=== PATIENT | male | born 1995 | race Caucasian/White ===

== ENCOUNTER 2022-04-12 20:21 | Emergency (ER) | payer OTHER ==
[2022-04-12 21:14] LABS: BASOPHILS % (AUTO) 1.4 % (0.0-5.0); EOSINOPHILS % (AUTO) 3.8 % (0.0-8.0); HEMATOCRIT 42.6 % (42-54); LYMPHOCYTES % (AUTO) 24.4 % (21.0-51.0); MEAN CORPUSCULAR HEMOGLOBIN 30.4 pg (27.0-33.0); MEAN CORPUSCULAR VOLUME 86.9 fL (79-99); MONOCYTES % (AUTO) 10.2 % (3.0-13.0); NEUTROPHILS % (AUTO) 59.9 % (40.0-77.0); PLATELET COUNT (AUTO) 358 K/uL (130-400); WHITE BLOOD COUNT (AUTO) 6.3 K/uL (4.8-10.8)
[2022-04-12 21:23] LABS: CARBON DIOXIDE 32 mmol/L (21-32); CHLORIDE 103 mmol/L (101-111); CREATININE 0.8 mg/dL (0.5-1.5); GLOMERULAR FILTR. RATE CALC 124 mL/min (>60); GLUCOSE,RANDOM 111 mg/dL (70-105); POTASSIUM 4.1 mmol/L (3.5-5.1); SODIUM SERUM 141 mmol/L (136-145); UREA NITROGEN, BLOOD 15 mg/dL (7-18)
[2022-04-12 21:27] LABS: ALANINE AMINOTRANSFERASE 50 U/L (12-78); ALCOHOL, BLOOD < 3 mg/dL (0-10); ASPARTATE AMINOTRANSFERASE 29 U/L (10-37)
[2022-04-12 21:28] LABS: ACETAMINOPHEN < 1 mcg/mL (10-29); SALICYLATE < 2.8 mg/dL (2.8-20.0)
[2022-04-12 22:18] LABS: APPEARANCE,URINE CLEAR (CLEAR); BILIRUBIN,URINE NEGATIVE (NEGATIVE); COLOR,URINE LIGHT-YELLOW (YELLOW); GLUCOSE, URINE (UA) NEGATIVE (NEGATIVE); KETONES,URINE NEGATIVE (NEGATIVE); LEUKOCYTE ESTERASE ,URINE NEGATIVE Leu/uL (NEGATIVE); NITRATE,URINE NEGATIVE (NEGATIVE); OCCULT BLOOD,URINE NEGATIVE (NEGATIVE); PH,URINE 5.5 (5.0-8.0); PROTEIN,URINE NEGATIVE (NEGATIVE); UROBILINOGEN,URINE 0.2 mg/dL (0.2-1.0)
[2022-04-12 23:00] LABS: AMPHET/METH SCREEN,URINE NEGATIVE (NEGATIVE); BARBITURATE SCREEN, URINE NEGATIVE (NEGATIVE); BENZODIAZEPINES SCREEN,URINE NEGATIVE (NEGATIVE); CANNABINOID SCREEN,URINE NEGATIVE (NEGATIVE); COCAINE SCREEN,URINE NEGATIVE (NEGATIVE); OPIATE SCREEN,URINE NEGATIVE (NEGATIVE); PHENCYCLIDINE SCREEN,URINE NEGATIVE (NEGATIVE)
[2022-04-13 12:11] VITALS: BP 123/57
== END 2022-04-14 00:20 | disposition home or self-care (01) ==
LOC: EDH 20:21
DX: F43.21 Adjustment disorder with depressed mood (principal); F32.9 Major depressive disorder, single episode, unspecified; Z59.00 Homelessness unspecified
CPT/HCPCS: 99285; 80053; 80305; 85025; 36415; 81003; G0481

== ENCOUNTER 2023-07-22 08:32 | Emergency (ER) | payer OTHER ==
[~2023-07-22] VITALS: Ht 172.7 cm; Wt 90.7 kg
[2023-07-22 08:54] LABS: BASOPHILS # (AUTO) 0.08 K/uL (0.00-0.20); BASOPHILS % (AUTO) 1.2 % (0.0-5.0); EOSINOPHILS % (AUTO) 1.5 % (0.0-8.0); HEMATOCRIT 46.1 % (42-54); IMMATURE GRANULOCYTE ABSOLUTE 0.02 K/uL (0-1); LYMPHOCYTES # (AUTO) 1.2 K/uL (1.0-4.8); LYMPHOCYTES % (AUTO) 17.9 % (21.0-51.0); MEAN CORPUSCULAR HEMOGLOBIN 30.4 pg (27.0-33.0); MEAN CORPUSCULAR HGB CONC 34.9 g/dL (32.0-36.0); MEAN CORPUSCULAR VOLUME 87.1 fL (79-99); MONOCYTES # (AUTO) 0.8 K/uL (0.1-1.0); MONOCYTES % (AUTO) 11.1 % (3.0-13.0); NEUTROPHILS # (AUTO) 4.6 K/uL (1.8-7.7); PLATELET COUNT (AUTO) 292 K/uL (130-400); RED BLOOD CELL COUNT(AUTO) 5.29 MIL/uL (4.50-6.20); RED CELL DISTRIBUTION WIDTH 13.3 % (11.0-15.5); WHITE BLOOD COUNT (AUTO) 6.8 K/uL (4.8-10.8)
[2023-07-22] MEDS: PANTOPRAZOLE 40 MG/VIAL IVP ONE (09:02)
[2023-07-22] MEDS: 0.9%NACL 1000ML 1,000 ML IV ONE (09:02)
[2023-07-22] MEDS: ONDANSETRON 4MG INJ IVP ONE (09:02)
[2023-07-22 09:07] LABS: CARBON DIOXIDE 27 mmol/L (21-32); CHLORIDE 104 mmol/L (101-111); CREATININE 0.7 mg/dL (0.5-1.3); GLOMERULAR FILTR. RATE CALC 130 mL/min (>90); GLUCOSE,RANDOM 92 mg/dL (70-105); POTASSIUM 3.6 mmol/L (3.5-5.1); SODIUM SERUM 141 mmol/L (136-145); UREA NITROGEN, BLOOD 14 mg/dL (7-18)
[2023-07-22 09:12] LABS: ALANINE AMINOTRANSFERASE 61 U/L (12-78); ALBUMIN 4.6 g/dL (3.5-5.0); ALCOHOL, BLOOD < 3 mg/dL (0-10); ASPARTATE AMINOTRANSFERASE 37 U/L (10-37); BILIRUBIN,DIRECT 0.2 mg/dL (0.0-0.3); BILIRUBIN,TOTAL 0.7 mg/dL (0.2-1.0); TOTAL PROTEIN, SERUM 8.1 g/dL (6.0-8.3)
[2023-07-22] MEDS ORDERED: PANT40TA55 PO (10:11)
[2023-07-22] MEDS ORDERED: METR375C2 PO (10:11)
[2023-07-22 10:38] VITALS: BP 120/69; PULSE 76; RESP 18; O2SAT 99
== END 2023-07-22 11:24 | disposition home or self-care (01) ==
LOC: EDH 08:32
DX: K29.01 Acute gastritis with bleeding (principal); R11.10 Vomiting, unspecified
CPT/HCPCS: 99285; 74176; 96374; 96375; 80076; 84484; 80048; 83690; 85025; 36415; 93005; J7030; J2405; C9113

== ENCOUNTER 2024-06-24 03:15 | Inpatient (IN) | payer SELFPAY ==
[~2024-06-24] VITALS: Ht 172.7 cm; Wt 71.2 kg
[~2024-06-24 03:15] MED LIST: METR375C2 PO; PANT40TA55 PO
[2024-06-24] MEDS: ketOROlac 30MG VIAL (30MG/ML) IVP ONE (04:50)
[2024-06-24] MEDS: ceFAZolin SODIUM 1 GM VIAL IVP ONE (04:50)
[2024-06-24 05:25] LABS: HEMATOCRIT 36.9 % (42-54); MEAN CORPUSCULAR HEMOGLOBIN 31.3 pg (27.0-33.0); MEAN CORPUSCULAR VOLUME 89.6 fL (79-99); RED BLOOD CELL COUNT(AUTO) 4.12 MIL/uL (4.50-6.20); RED CELL DISTRIBUTION WIDTH 12.4 % (11.0-15.5); WHITE BLOOD COUNT (AUTO) 9.9 K/uL (4.8-10.8)
[2024-06-24 05:31] LABS: AMPHET/METH SCREEN,URINE NEGATIVE (NEGATIVE); BARBITURATE SCREEN, URINE NEGATIVE (NEGATIVE); BENZODIAZEPINES SCREEN,URINE NEGATIVE (NEGATIVE); CANNABINOID SCREEN,URINE POSITIVE (NEGATIVE); COCAINE SCREEN,URINE NEGATIVE (NEGATIVE); OPIATE SCREEN,URINE NEGATIVE (NEGATIVE); PHENCYCLIDINE SCREEN,URINE NEGATIVE (NEGATIVE)
--- NOTE | 2024-06-24 05:53 | ERN ---
General Chief Complaint: Head, Face, Neck Trauma Stated Complaint: HEAD INJURY Time Seen by MD: 04:24 History of Present Illness Initial Comments Patient is a 28-year-old male who fell in the shower yesterday he said he was down for an unknown period of time. When he woke up he noticed that there was a large piece of skin missing from his left forehead but he did not come to the hospital. He comes to the hospital today after 1st going to [facility]. He is concerned that he has an elevated CK level and he appears somnolent to me. He states he does not do drugs or drink alcohol. Timing/Duration: 24 hours Allergies: Coded Allergies: No Known Allergies (Unverified Allergy, Unknown, 04/12/22) Home Meds Active Scripts Metronidazole (Flagyl) 375 Mg Capsule, 375 MG PO DAILY for 7 Days, #7 CAP Prov:PHILOMENA HORTON MD 07/22/23 Pantoprazole Sodium (Protonix) 40 Mg Ectab, 40 MG PO DAILY for 30 Days, #30 TAB.EC Prov:PHILOMENA HORTON MD 07/22/23 Past Medical History Past Medical History: No Pertinent History, Depression Medical History Other: PSYCH HISTORY Past Surgical History: None Social History Social History: Drugs Dication THC Constitutional: (-) chills, (-) diaphoresis, (-) fever, (-) malaise, (-) weakness, (-) other documentation EENTM: (-) eye pain, (-) blurred vision, (-) tearing, (-) double vision, (-) ear pain, (-) ear discharge, (-) nose pain, (-) nose congestion, (-) throat pain, (-) Throat swelling, (-) mouth pain, (-) tooth pain, (-) mouth swelling, (-) other documentation Respiratory: (-) cough, (-) orthopnea, (-) short of breath, (-) stridor, (-) wheezing, (-) other documentation Cardiovascular: (-) chest pain, (-) edema, (-) palpitations, (-) syncope, (-) dyspnea on exertion, (-) other documentation Gastrointestinal/Abdominal: (-) nausea, (-) vomiting, (-) diarrhea, (-) abdominal pain, (-) abdominal distention, (-) constipation, (-) rectal bleeding, (-) dark stool/melena, (-) other documentation Musculoskeletal: (-) Neck pain, (-) back pain, (-) Flank Pain, (-) joint pain, (-) joint swelling, (-) muscle pain, (-) muscle stiffness, (-) gout, (-) other documentation Skin: (-) laceration, (-) contusion, (-) abrasion, (-) abscess, (-) rash, (-) change in color, (-) change in hair, (-) change in nails, (-) diaphoresis, (-) dryness, (-) other documentation Neuro: (-) altered mental status, (-) headache, (-) syncope, (-) paralysis, (-) numbness, (-) seizure, (-) pre-existing deficit, (-) tremors, (-) weakness, (-) dizziness, (-) slurred speech, (-) vertigo, (-) other documentation Physical Exam General Appearance: (+) mild distress Orientation: (+) alert Head/Face Trauma: Yes Face Comment There was a large skin defect encompassing most of the left forehead. Fat is exposed the wound is clearly a day old at least. Eye: bilateral eye normal inspection, bilateral eye PERRL, bilateral eye EOMI Eyes Comment Patient's eyes move in all directions he has no signs of entrapment he does not have diplopia he does not have a loss of vision or visual acuity. Ear, Nose, Throat: (+) hearing grossly normal, (+) normal ENT inspection Neck: (+) normal inspection, (+) no JVD Respiratory: (+) chest non-tender, (+) lungs clear, (+) well ventilated Heart: (+) regular, (+) no gallop Results Laboratory and Microbiology Lab and Micro Result Laboratory Tests Test 06/24/24 05:18 White Blood Count 9.9 K/uL (4.8-10.8) Red Blood Count 4.12 MIL/uL (4.50-6.20) L Hemoglobin 12.9 g/dL (14.0-18.0) L Hematocrit 36.9 % (42-54) L Mean Corpuscular Volume 89.6 fL (79-99) Mean Corpuscular Hemoglobin 31.3 pg (27.0-33.0) Mean Corpuscular Hemoglobin Concent 35.0 g/dL (32.0-36.0) Red Cell Distribution Width 12.4 % (11.0-15.5) Platelet Count 265 K/uL (130-400) Mean Platelet Volume 9.4 fL (7.5-10.5) Nucleated Red Blood Cells 0.0 % (0.0-0.19) Sodium Level 141 mmol/L (136-145) Potassium Level 2.9 mmol/L (3.5-5.1) *L Chloride Level 103 mmol/L (101-111) Carbon Dioxide Level 29 mmol/L (21-32) Blood Urea Nitrogen 9 mg/dL (7-18) Creatinine 0.4 mg/dL (0.5-1.3) L Glomerular Filtration Rate Calc 152 mL/min (>90) Random Glucose 92 mg/dL (70-105) Total Calcium 8.2 mg/dL (8.5-10.1) L Total Creatine Kinase 4134 U/L (21-232) *H Urine Opiates Screen NEGATIVE (NEGATIVE) Urine Barbiturates Screen NEGATIVE (NEGATIVE) Urine Phencyclidine Screen NEGATIVE (NEGATIVE) Urine Amphetamines Screen NEGATIVE (NEGATIVE) Urine Benzodiazepines Screen NEGATIVE (NEGATIVE) Urine Cocaine Screen NEGATIVE (NEGATIVE) Urine Marijuana (THC) Screen POSITIVE (NEGATIVE) H MDM Patient has a large skin defect on his left forehead I will do a stat CT head to make sure he does not have an intracerebral injury. I think the patient needs to be admitted to the [facility] for better wound care and also definitive planning for closure of his large skin defect. ED Course Orders Procedure Category Date Status Time Cefazolin Sodium 1 Gm PHA 06/24/24 Complete Vial (Ancef 1 Gm V 05:00 Ketorolac PHA 06/24/24 Complete Tromethamine 30mg/Ml 05:00 Ct Head/Brain W/O CT 06/24/24 Taken Contrast 04:42 Cbc Without LAB 06/24/24 Complete Differential 05:18 Basic Metabolic Panel LAB 06/24/24 Complete 05:18 Creatine Kinase, Total LAB 06/24/24 Complete 05:18 Drug Screen Urine LAB 06/24/24 Complete 05:18 Current Medications Medications (Trade) Dose Ordered Sig/Nell Route PRN Reason Start Time Stop Time Status Last Admin Dose Admin Cefazolin Sodium (ANCEF 1 gm vial) 1 gm ONCE ONCE IVP 06/24/24 05:00 06/24/24 05:01 DC 06/24/24 04:50 Ketorolac Tromethamine (toRADol) 30 mg ONCE ONCE IVP 06/24/24 05:00 06/24/24 05:01 DC 06/24/24 04:50 Vital Signs Date Time Temp Pulse Resp B/P (MAP) Pulse Ox O2 Delivery O2 Flow Rate FiO2 06/24/24 05:49 98.2 78 18 135/90 98 Room Air* 0 21 06/24/24 03:17 97.5 77 18 153/93 98 Room Air 0 DX & DISP Disposition: Inpatient Departure Impression: Primary Impression: Open scalp wound Condition: Stable Referrals: SELF,REFERRAL (PCP) JOSEA COLON MD June 24, 2024 05:53
[2024-06-24 05:54] LABS: CREATININE 0.4 mg/dL (0.5-1.3)
[2024-06-24 06:02] LABS: POTASSIUM 2.9 mmol/L (3.5-5.1)
--- NOTE | 2024-06-24 06:15 | NUR ---
WOUND CARE DONE ORDERED
[2024-06-24] MEDS ORDERED: acetaMINOPHEN 325 MG TAB PO PRN ×3 (07:30)
[2024-06-24] MEDS ORDERED: PoTASSium chl 10% ELIXIR 20MEQ 20 MEQ/15 ML UDCUP PO PRN ×2 (07:30)
[2024-06-24] MEDS ORDERED: PoTASSium chloRIDE 20MEQ ER 20 MEQ ERTAB PO PRN (07:30)
[2024-06-24] MEDS ORDERED: LACTATED RINGERS 1000ML 1,000 ML IV SCH (07:30)
[2024-06-24] MEDS ORDERED: ceFAZolin SODIUM 1 GM VIAL IVPB SCH (07:30)
[2024-06-24] MEDS ORDERED: ondanSETRON 4MG INJ IVP PRN ×2 (07:30)
[2024-06-24] MEDS ORDERED: PoTASSium chloRIDE 20MEQ/100ML 100 ML IV PRN ×4 (07:30)
[2024-06-24] MEDS: LACTATED RINGERS 1000ML 1,000 ML IV SCH (08:07)
--- NOTE | 2024-06-24 08:07 | HMCIMG ---
Exam Type: CT HEAD/BRAIN W/O CONTRAST Clinical Information: LEFT FRONTAL HEAD INJURY, + LOC Comparison: None CT Dose Index (CTDI): 57.33 mGy Dose Length Product (DLP): 956.79 total mGy-cm Findings: The examination is unremarkable. Johnson-white matter junction is preserved. No intra or extra axial lesions or fluid collections are seen. Specifically, johnson and white matter are normal in signal characteristics with normal caliber of ventricles and periventricular cisterns with no evidence of intra or or extra-axial hemorrhage, lacunar infarct, or major territorial infarct, mass, or other abnormality. There are no infarcts. There are no hemorrhages. Periventricular white matter locations are preserved. The orbital contents and structures of the posterior fossa are intact. Impression: Normal CT of the head. This study was performed using dose reduction techniques to include automated exposure control and/or adjustment of the mA and/or kV according to patient size.
[2024-06-24] MEDS: PoTASSium chloRIDE 20MEQ ER 20 MEQ ERTAB PO PRN (08:22)
[2024-06-24] MEDS: acetaMINOPHEN 325 MG TAB PO PRN (08:36)
--- NOTE | 2024-06-24 10:20 | NUR ---
NO HOME MEDS AT BEDSIDE
[2024-06-24] MEDS: ceFAZolin SODIUM 1 GM VIAL IVPB SCH (13:09)
[2024-06-24 13:55] VITALS: O2SAT 97
--- NOTE | 2024-06-24 14:02 | NUR ---
CALLED AND GAVE REPORT TO GEORGIA ARZOLA , ROOM 321
--- NOTE | 2024-06-24 14:29 | NUR ---
[facility] Consult: Patient assessed by wound healing team. See wound assessment. Assessment and recommendations provided to primary nurse. Education provided. Wound care done. Addendum: 06/25/24 at 1557 by JORGE CABALLERO RN RN/ Amended: Links added.
[2024-06-24 14:44] VITALS: BP 124/78; PULSE 80; RESP 18; TEMP 98.6
[2024-06-24 16:00] VITALS: BP 144/82; PULSE 93; RESP 18; TEMP 98.5
--- NOTE | 2024-06-24 16:40 | HP ---
Admitting Dr. Ceferino Serna Reason for consultation: Status post fall with laceration to left forehead History of present illness: This is a 28-year-old male admitted to our services after presenting to the hospital four days after having a sustained fall on shower where patient reports he was out and had a loss of consciousness for an unknown period of time. When patient woke up he reports a large piece of skin was missing just over his left eyebrow. Patient's attempted to manage wound on his own for the 1st two days and then presented to [facility] in [place] but left AMA. Patient then presented to [facility] for assistance in management. On admission patient with a elevated CK. Then 4100. Patient's potassium under three. On exam no active bleeding from site. Currently bandaged. Patient currently NPO. No other acute findings reported. CT of head unremarkable. Medical history: None reported Surgical history: None reported Review of systems: General: No Fever, No Chills, No Night Sweats, No Fatigue, No Malaise, No Appetite, No Other HEENT: No Head Aches, No Visual Changes, No Eye Pain, No Ear Pain, No Dysphasia, No Sinus Congestion, No Post Nasal Drip, No Sore Throat, No Other Pulmonary: No Dyspnea, No Cough, No Pleuritic Chest Pain, No Other Cardiovascular: No: Chest Pain, Palpitations, Orthopnea, Paroxysmal No Dyspnea, Edema, Lt Headedness, Other Gastrointestinal: No: Nausea, Vomiting, Diarrhea, Constipation, Melena, Hematochezia, Other Genitourinary: No Dysuria, No Frequency, No Incontinence, No Hematuria, No Retention, No Other Musculoskeletal: No: other, neck pain, shoulder pain, arm pain, back pain, hand pain, leg pain, foot pain Skin: No Urticaria, No Rash, No Other Neurological: No: Weakness, Numbness, Incoordination, Change in speech, Confusion, Seizures, Other Physical exam: General: Awake alert and oriented Heart: Regular rate and rhythm} Lungs: Clear to auscultation no distress Abdomen: [Soft, nontender, nondistended Skin over left forehead region missing with noninfected tissue at this time Assessment: This is a 28-year-old male with laceration to left scalp region with missing tissue and elevated CK concerning for rhabdomyolysis Plan: At this point in time nursing instructed to cover potassium Hospitalist to be consulted for elevated CK in assistance with management of rhabdomyolysis Patient to continue with Xeroform over lacerated forehead with daily wound care management being performed by nursing No immediate surgical intervention planned at this time Patient will likely follow up in outpatient setting for continued wound care management Surgical team to follow patient closely and Dr. Hyatt to be updated in patient's status. Thank you EDILSON FAIRCHILD Jr. June 24, 2024 16:39
[2024-06-24 20:00] VITALS: BP 122/77; PULSE 88; RESP 18; TEMP 98.1
--- NOTE | 2024-06-24 22:22 | CONS ---
[facility] CONSULTATION NOTE Date of Service: June 24, 2024 Reason for Consultation: Rhabdomyolysis, medical management Requesting Physician: Surgical team with Dr. Serna HISTORY OF PRESENT ILLNESS: Mr. Jolly is a 28-year-old male with a history of depression, psych history, marijuana abuse, and recurrent herpes outbreak was admitted to under the surgical team services after presenting to the hospital four days after having a sustained fall on shower where patient reports he was out and had a loss of consciousness for an unknown period of time. The patient reported to that when he woke up he reports a large piece of skin was missing just over his left eyebrow. Patient's attempted to manage wound on his own for the 1st two days and then presented to [facility] in [place] but left AMA. Patient then presented to [facility] for assistance in management. On admission patient had a CK of 4134 and a K of 2.9. CT of head unremarkable. The patient was positive for marijuana. The [facility] hospitalist team was consulted on 06/24/2024 for evaluation of elevated CK with concern of rhabdomyolysis. I assessed the patient at bedside in room 321. The patient's breathing was even, unlabored, in no distress. The patient was lying in bed, eating chips, reports feeling tired. The patient denied chest pain, palpitations, shortness of breath, any other pain, problem or concern. I informed the patient of labs, diagnosis, and plan of care. He verbalized understanding and is in agreement with the plan. Plan and assessment as listed below. Addendum: Repeated labs: CK improved to 2,650 from 4,134. Potassium improved from 2.9 to 4.5. REVIEW OF SYSTEMS 12-point ROS reviewed with the patient. All pertinent positives mentioned above. Otherwise negative, noncontributory, non-pertinent. PAST MEDICAL HISTORY: As mentioned above PAST SURGICAL HISTORY: None PAST SOCIAL HISTORY: Patient reported stopped using marijuana, (UA is positive for marijuana) Alcohol use: Occasional Tobacco use: Denied Coded Allergies: No Known Allergies (Unverified Allergy, Unknown, 04/12/22) PHYSICAL EXAM GENERAL APPEARANCE: The patient is awake, alert, and oriented, in no acute cardiopulmonary distress. NEUROLOGICAL: Cranial nerves II-XII grossly intact. Motor is 5/5 in bilateral upper and lower extremities proximal to distal. No sensory deficits. HEENT: Face is symmetric. Pupils are equal and reactive. Extraocular movements are intact. NECK: Supple. No JVD. No thyromegaly. No submental, submandibular, pre- /postauricular, occipital or supraclavicular lymphadenopathy. CHEST: Normal chest expansion. No Telemetry. LUNGS: Absence of any rales, rhonchi or any wheezing. CARDIOVASCULAR: Regular. S1 and S2 normal. No appreciable rubs, murmurs or gallops. ABDOMEN: Soft, nontender, and nondistended. There is no rebound, voluntary guarding, or rigidity. : Penile sores. No Rubi. EXTREMITIES: Non-edematous and not cyanotic. No clubbing. Good capillary refill. SKIN: Left forehead wound is covered with clean dressing. Vital Sign (Last 24 Hours) 06/24/24 20:00 Temp 98.1 Pulse 88 Resp 18 B/P (MAP) 122/77 Pulse Ox 99 O2 Delivery Room Air O2 Flow Rate 0 FiO2 21 LABS: Laboratory: Test 06/24/24 05:18 Range/Units White Blood Count 9.9 4.8-10.8 K/uL Red Blood Count 4.12 L 4.50-6.20 MIL/uL Hemoglobin 12.9 L 14.0-18.0 g/dL Hematocrit 36.9 L 42-54 % Mean Corpuscular Volume 89.6 79-99 fL Mean Corpuscular Hemoglobin 31.3 27.0-33.0 pg Mean Corpuscular Hemoglobin Concent 35.0 32.0-36.0 g/dL Red Cell Distribution Width 12.4 11.0-15.5 % Platelet Count 265 130-400 K/uL Mean Platelet Volume 9.4 7.5-10.5 fL Nucleated Red Blood Cells 0.0 0.0-0.19 % Sodium Level 141 136-145 mmol/L Potassium Level 2.9 *L 3.5-5.1 mmol/L Chloride Level 103 101-111 mmol/L Carbon Dioxide Level 29 21-32 mmol/L Blood Urea Nitrogen 9 7-18 mg/dL Creatinine 0.4 L 0.5-1.3 mg/dL Glomerular Filtration Rate Calc 152 >90 mL/min Random Glucose 92 70-105 mg/dL Total Calcium 8.2 L 8.5-10.1 mg/dL Total Creatine Kinase 4134 *H 21-232 U/L Urine Opiates Screen NEGATIVE NEGATIVE Urine Barbiturates Screen NEGATIVE NEGATIVE Urine Phencyclidine Screen NEGATIVE NEGATIVE Urine Amphetamines Screen NEGATIVE NEGATIVE Urine Benzodiazepines Screen NEGATIVE NEGATIVE Urine Cocaine Screen NEGATIVE NEGATIVE Urine Marijuana (THC) Screen POSITIVE H NEGATIVE DIAGNOSTICS / RADIOLOGY: [ ] ASSESSMENT: Left scapular laceration/open wounds, POA s/p syncope episode after fall injury Rhabdomyolysis, POA Severe hypokalemia, POA Dehydration POA Marijuana abuse Anemia chronic disease Transaminitis Chronic problem list: Depression, psych history, marijuana abuse, recurrent herpes outbreak with frequent use of acyclovir PLAN: -Patient was admitted by the the surgical team to medical-surgical unit. -CONTINUE ANCEF1 G Q.8 HOURS IV. -Increase LR to 250 mL an hour. (LR was running at 125 mL an hours) -Monitor CK q.6 hours. -Glucometer checks AC & HS needed with insulin regular sliding scale coverage as needed. -Blood pressure checks every 4 hours and as needed. -p.r.n. medications for: Pain, fever, nausea, vomiting, hypertension, constipation. -AM labs. -Monitor renal and liver function -Monitor electrolytes and replace PRN -GI and DVT prophylaxis ADVANCED CARE PLANNING 1. Which of the following were discussed? Hospice Care - No Therapeutic options - Yes Advance Directives - Yes Other discussions - 2. Discussed with who? Patient 3. Voluntary nature of this service was explained to the patient? Yes 4. Amount of time spent - __ over 35 minutes 5. Reviewed by Physician? (if this service was performed by COLIN) Yes ATTESTATION BY PHYSICIAN I have seen and examined the patient. I reviewed the documentation, medical decision making, and treatment plan as noted by the mid-level provider above. I agree with the findings and plan of care. GUILHERME TRAN [facility] June 24, 2024 22:22
[2024-06-24 22:49] LABS: HEMATOCRIT 37.1 % (42-54); MEAN CORPUSCULAR VOLUME 91.2 fL (79-99); RED BLOOD CELL COUNT(AUTO) 4.07 MIL/uL (4.50-6.20); RED CELL DISTRIBUTION WIDTH 12.4 % (11.0-15.5); WHITE BLOOD COUNT (AUTO) 8.6 K/uL (4.8-10.8)
[2024-06-24 23:19] LABS: CREATININE 0.7 mg/dL (0.5-1.3); POTASSIUM 4.5 mmol/L (3.5-5.1)
[2024-06-24 23:42] LABS: ALBUMIN 3.5 g/dL (3.5-5.0); BILIRUBIN,TOTAL 0.3 mg/dL (0.2-1.0); MAGNESIUM 1.9 mg/dL (1.80-2.40); TOTAL PROTEIN, SERUM 7.3 g/dL (6.0-8.3)
[2024-06-25 04:00] VITALS: BP 110/76; PULSE 100; RESP 18; TEMP 98.1
[2024-06-25] MEDS: MAGNESIUM 2GM PREMIX 50ML 50 ML IV PRN (05:17)
[2024-06-25] MEDS ORDERED: VALA500T42 PO (06:03)
[2024-06-25 07:05] LABS: HEMATOCRIT 34.5 % (42-54); MEAN CORPUSCULAR HEMOGLOBIN 30.7 pg (27.0-33.0); MEAN CORPUSCULAR HGB CONC 33.6 g/dL (32.0-36.0); MEAN CORPUSCULAR VOLUME 91.3 fL (79-99); RED BLOOD CELL COUNT(AUTO) 3.78 MIL/uL (4.50-6.20); RED CELL DISTRIBUTION WIDTH 12.6 % (11.0-15.5); WHITE BLOOD COUNT (AUTO) 5.3 K/uL (4.8-10.8)
[2024-06-25 07:32] VITALS: BP 120/59; PULSE 76; RESP 18; TEMP 98.1
[2024-06-25 07:39] LABS: ALBUMIN 3.1 g/dL (3.5-5.0); BILIRUBIN,TOTAL 0.4 mg/dL (0.2-1.0); CREATININE 0.7 mg/dL (0.5-1.3); TOTAL PROTEIN, SERUM 5.6 g/dL (6.0-8.3)
[2024-06-25 08:00] VITALS: O2SAT 98
[2024-06-25] MEDS: valaCYCLOvir HCL 500 MG TABLET PO SCH (09:22)
[2024-06-25] MEDS: ALPRAZolam 0.25 MG TABLET PO PRN (10:53)
[2024-06-25 11:29] VITALS: BP 136/79; PULSE 68; RESP 18; TEMP 98.4
--- NOTE | 2024-06-25 12:29 | PN ---
[facility] PROGRESS NOTE Date of Service: June 25, 2024 Time of Service: 12:[address] Peguero SUBJECTIVE: [ 06/24/24 Mr. Jolly is a 28-year-old male with a history of depression, psych history, marijuana abuse, and recurrent herpes outbreak was admitted to under the surgical team services after presenting to the hospital four days after having a sustained fall on shower where patient reports he was out and had a loss of consciousness for an unknown period of time. The patient reported to that when he woke up he reports a large piece of skin was missing just over his left eyebrow. Patient's attempted to manage wound on his own for the 1st two days and then presented to [facility] in [place] but left AMA. Patient then presented to [facility] for assistance in management. On admission patient had a CK of 4134 and a K of 2.9. CT of head unremarkable. The patient was positive for marijuana. [facility] hospitalist team was consulted on 06/24/2024 for evaluation of elevated CK with concern of rhabdomyolysis. I assessed the patient at bedside in room 321. The patient's breathing was even, unlabored, in no distress. The patient was lying in bed, eating chips, reports feeling tired. The patient denied chest pain, palpitations, shortness of breath, any other pain, problem or concern. I informed the patient of labs, diagnosis, and plan of care. He verbalized understanding and is in agreement with the plan. Plan and assessment as listed below. 06/25/24 patient was seen by nurse practitioner physician during rounding in room 321. Patient is toxicology came back positive for THC. Head CT negative. As per surgeon apply Xeroform over lacerated for help with the daily wound care management. patient was cleared by the surgical point to be discharged home. We will give patient one more day four CK of 1645 today if the we will go down less than 800 tomorrow patient will be able to go home. Patient also was complaining of anxiety. Xanax 0.25 q.8 hours was ordered. We will continue to monitor patient in the meantime. A.m. labs] REVIEW OF SYSTEMS 12-point ROS reviewed with the patient. All pertinent positives mentioned above. Otherwise negative, noncontributory, non-pertinent. PHYSICAL EXAM GENERAL APPEARANCE: The patient is awake, alert, and oriented, in no acute cardiopulmonary distress. NEUROLOGICAL: Cranial nerves II-XII grossly intact. Motor is 5/5 in bilateral upper and lower extremities proximal to distal. No sensory deficits. HEENT: Face is symmetric. Pupils are equal and reactive. Extraocular movements are intact. NECK: Supple. No JVD. No thyromegaly. No submental, submandibular, pre- /postauricular, occipital or supraclavicular lymphadenopathy. CHEST: Normal chest expansion. No Telemetry. LUNGS: Absence of any rales, rhonchi or any wheezing. CARDIOVASCULAR: Regular. S1 and S2 normal. No appreciable rubs, murmurs or gallops. ABDOMEN: Soft, nontender, and nondistended. There is no rebound, voluntary guarding, or rigidity. : Penile sores. No Rubi. EXTREMITIES: Non-edematous and not cyanotic. No clubbing. Good capillary refill. SKIN: Left forehead wound is covered with clean dressing. Vital Signs (last 8hr) Date Time Temp Pulse Resp B/P (MAP) Pulse Ox O2 Delivery O2 Flow Rate FiO2 06/25/24 11:29 98.4 68 18 136/79 98 Room Air 06/25/24 07:32 98.1 76 18 120/59 98 Room Air LABS: Laboratory: Test 06/25/24 06:50 06/24/24 22:40 06/24/24 05:18 Range/Units White Blood Count 5.3 # 4.8-10.8 K/uL Red Blood Count 3.78 L 4.50-6.20 MIL/uL Hemoglobin 11.6 L 14.0-18.0 g/dL Hematocrit 34.5 L 42-54 % Mean Corpuscular Volume 91.3 79-99 fL Mean Corpuscular Hemoglobin 30.7 27.0-33.0 pg Mean Corpuscular Hemoglobin Concent 33.6 32.0-36.0 g/dL Red Cell Distribution Width 12.6 11.0-15.5 % Platelet Count 230 130-400 K/uL Mean Platelet Volume 9.3 7.5-10.5 fL Nucleated Red Blood Cells 0.0 0.0-0.19 % Sodium Level 140 136-145 mmol/L Potassium Level 4.0 3.5-5.1 mmol/L Chloride Level 106 101-111 mmol/L Carbon Dioxide Level 30 21-32 mmol/L Blood Urea Nitrogen 7 7-18 mg/dL Creatinine 0.7 0.5-1.3 mg/dL Glomerular Filtration Rate Calc 129 >90 mL/min Random Glucose 119 H 70-105 mg/dL Total Calcium 8.1 L 8.5-10.1 mg/dL Total Bilirubin 0.4 # 0.2-1.0 mg/dL Aspartate Amino Transf (AST/SGOT) 83 H 10-37 U/L Alanine Aminotransferase (ALT/SGPT) 65 12-78 U/L Alkaline Phosphatase 73 50-136 U/L Total Creatine Kinase 1645 #*H 21-232 U/L Total Protein 5.6 #L 6.0-8.3 g/dL Albumin 3.1 L 3.5-5.0 g/dL Magnesium Level 1.90 1.80-2.40 mg/dL Troponin I High Sensitivity 7.7 4-75 ng/L B-Type Natriuretic Peptide 34 0-100 pg/mL Urine Opiates Screen NEGATIVE NEGATIVE Urine Barbiturates Screen NEGATIVE NEGATIVE Urine Phencyclidine Screen NEGATIVE NEGATIVE Urine Amphetamines Screen NEGATIVE NEGATIVE Urine Benzodiazepines Screen NEGATIVE NEGATIVE Urine Cocaine Screen NEGATIVE NEGATIVE Urine Marijuana (THC) Screen POSITIVE H NEGATIVE Current Medications Medications (Trade) Dose Ordered Sig/Nell Route PRN Reason Start Time Stop Time Status Last Admin Dose Admin Acetaminophen (TYLenol 325MG TAB) 650 mg Q4H PRN PO TEMPERATURE GREATER THAN 101.5 06/24/24 07:30 06/24/24 07:14 DC Acetaminophen (TYLenol 325MG TAB) 650 mg Q4H PRN PO TEMPERATURE GREATER THAN 101.5 06/24/24 07:30 07/24/24 07:29 Acetaminophen (TYLenol 325MG TAB) 650 mg Q6H PRN PO MILD PAIN (1-3) 06/24/24 07:30 06/24/24 07:14 DC Acetaminophen (TYLenol 325MG TAB) 650 mg Q6H PRN PO MILD PAIN (1-3) 06/24/24 07:30 07/24/24 07:29 06/25/24 05:54 650 MG Alprazolam (XANax 0.25MG) 0.25 mg TID PRN PO ANXIETY/AGITATION 06/25/24 11:00 07/25/24 10:59 06/25/24 10:53 0.25 MG Cefazolin Sodium (ANCEF 1 gm vial) 1 gm Q8H IVPB 06/24/24 07:30 06/24/24 07:14 DC Cefazolin Sodium (ANCEF 1 gm vial) 1 gm Q8H IVPB 06/24/24 13:00 07/04/24 12:59 06/25/24 04:04 1 GM Lactated Ringer's 1,000 ml @ 125 mls/hr Q8H IV 06/24/24 07:30 06/24/24 07:14 DC Lactated Ringer's 1,000 ml @ 250 mls/hr Q4H IV 06/24/24 07:30 07/24/24 07:29 06/25/24 04:05 250 MLS/HR Magnesium Sulfate 50 ml @ 0 mls/hr PROTOCOL PRN IV MAGNESIUM PROTOCOL 06/24/24 16:00 07/24/24 15:59 06/25/24 05:17 25 MLS/HR Ondansetron HCl (zoFRAN 4MG INJ) 4 mg Q6H PRN IVP NAUSEA/VOMITING 06/24/24 07:30 06/24/24 07:14 DC Ondansetron HCl (zoFRAN 4MG INJ) 4 mg Q6H PRN IVP NAUSEA/VOMITING 06/24/24 07:30 07/24/24 07:29 Potassium Chloride 100 ml @ 50 mls/hr AD PRN IV POTASSIUM PROTOCOL 06/24/24 07:30 06/24/24 07:14 DC Potassium Chloride 100 ml @ 50 mls/hr AD PRN IV POTASSIUM PROTOCOL 06/24/24 07:30 06/24/24 07:19 DC Potassium Chloride 100 ml @ 100 mls/hr AD PRN IV POTASSIUM PROTOCOL 06/24/24 07:30 06/24/24 07:14 DC Potassium Chloride 100 ml @ 100 mls/hr AD PRN IV POTASSIUM PROTOCOL 06/24/24 07:30 07/24/24 07:29 Potassium Chloride (K-Dur/Klor-Con 20meq) 20 meq AD PRN PO POTASSIUM PROTOCOL 06/24/24 07:30 06/24/24 07:14 DC Potassium Chloride (K-Dur/Klor-Con 20meq) 20 meq AD PRN PO POTASSIUM PROTOCOL 06/24/24 07:30 07/24/24 07:29 06/24/24 22:46 20 MEQ Potassium Chloride (KCl 10% Elixir 20meq/15ml) 20 meq AD PRN PO POTASSIUM PROTOCOL 06/24/24 07:30 06/24/24 07:14 DC Potassium Chloride (KCl 10% Elixir 20meq/15ml) 20 meq AD PRN PO POTASSIUM PROTOCOL 06/24/24 07:30 07/24/24 07:29 Valacyclovir HCl (ValtREX) 500 mg BID PO 06/25/24 09:00 07/25/24 08:59 06/25/24 09:22 500 MG DIAGNOSTICS / RADIOLOGY: [ ] ASSESSMENT: Left scapular laceration/open wounds, POA s/p syncope episode after fall injury Rhabdomyolysis, POA Severe hypokalemia, POA Dehydration POA Marijuana abuse Anemia chronic disease Transaminitis Chronic problem list: Depression, psych history, marijuana abuse, recurrent herpes outbreak with frequent use of acyclovir PLAN: -Patient was admitted by the the surgical team to medical-surgical unit. -CONTINUE ANCEF1 G Q.8 HOURS IV. -Increase LR to 250 mL an hour. (LR was running at 125 mL an hours) -Monitor CK q.6 hours. -Glucometer checks AC & HS needed with insulin regular sliding scale coverage as needed. -Blood pressure checks every 4 hours and as needed. -p.r.n. medications for: Pain, fever, nausea, vomiting, hypertension, constipation. -AM labs. -Monitor renal and liver function -Monitor electrolytes and replace PRN -GI and DVT prophylaxis ATTESTATION BY PHYSICIAN I have seen and examined the patient. I reviewed the documentation, medical decision making, and treatment plan as noted by the mid-level provider above. I agree with the findings and plan of care. KANDACE PEGUERO MD, KATARZYNA B PRODUCT EXAMINER June 25, 2024 12:29
[2024-06-25 16:07] VITALS: BP_SYST 124; BP_SYST 136; BP_DIAS 71; BP_DIAS 79; PULSE 68; PULSE 82; RESP 18; TEMP 98; TEMP 98.4
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
[2024-06-25 20:00] VITALS: BP 141/84; PULSE 87; RESP 18; TEMP 97.8
[2024-06-26] VITALS: BP 127/73; PULSE 72; RESP 18; TEMP 97.8
--- NOTE | 2024-06-26 02:10 | NUR ---
NURSING ROUNDS PATIENT UP TO SHOWER AT THIS TIME. PATIENT STATED WANTING TO CLEAN [place] AREA DUE TO DISCOMFORT. IV COVERED AND PATIENT PROVIDED WITH CLEAN TOWELS AND LINEN.
--- NOTE | 2024-06-26 02:59 | NUR ---
NURSING NOTE PATIENT CALL LIGHT ON, PATIENT ASSISTED TO APPLY GOWN. IV TO RIGHT FOREARM PATENT AND FLUSHES WITHOUT RESISTANCE, WOUND CARE DONE TO LEFT FOREHEAD WOUND. PATIENT MEDICATED WITH TYLENOL FOR PAIN. IV FLUIDS CONTINUE INFUSING AT 250ML/HR. PATIENT REQUESTING FOR PHONE TO BE CHARGED, ASSISTED PATIENT WITH CHARGING PHONE.
--- NOTE | 2024-06-26 03:27 | NUR ---
REFUSING LABS AT THIS TIME PATIENT STATING "OKAY IM GOING TO GO TO SLEEP NOW". INFORMED PATIENT OF LABS THAT ARE SCHEDULE TO BE DRAWN AROUND 4AM. PER PATIENT "NO, I DONT WANT LABS UNTIL 9AM." Addendum: 06/26/24 at 0331 by SONG MARES RN RN PATIENT EDUCATED ON IMPORTANCE OF GETTING LABS DRAWN EARLY SO THAT MAY TREAT PATIENT TIMELY. PATIENT CONTINUES TO REFUSE AT THIS TIME AND STATED "NOT TILL 9". LABORATORY INFORMED, SPOKE WITH DONNY ABOUT PATIENTS REQUEST.
[2024-06-26 03:55] VITALS: BP 141/73; PULSE 76; RESP 18; TEMP 98.9
[2024-06-26 08:00] VITALS: BP 120/73; PULSE 70; RESP 18; TEMP 97.8
--- NOTE | 2024-06-26 08:25 | PN ---
[facility] PROGRESS NOTE Date of Service: June 26, 2024 Time of Service: 08:[address] Peguero SUBJECTIVE: [ 06/24/24 Mr. Jolly is a 28-year-old male with a history of depression, psych history, marijuana abuse, and recurrent herpes outbreak was admitted to under the surgical team services after presenting to the hospital four days after having a sustained fall on shower where patient reports he was out and had a loss of consciousness for an unknown period of time. The patient reported to that when he woke up he reports a large piece of skin was missing just over his left eyebrow. Patient's attempted to manage wound on his own for the 1st two days and then presented to [facility] in [place] but left AMA. Patient then presented to [facility] for assistance in management. On admission patient had a CK of 4134 and a K of 2.9. CT of head unremarkable. The patient was positive for marijuana. The [facility] hospitalist team was consulted on 06/24/2024 for evaluation of elevated CK with concern of rhabdomyolysis. I assessed the patient at bedside in room 321. The patient's breathing was even, unlabored, in no distress. The patient was lying in bed, eating chips, reports feeling tired. The patient denied chest pain, palpitations, shortness of breath, any other pain, problem or concern. I informed the patient of labs, diagnosis, and plan of care. He verbalized understanding and is in agreement with the plan. Plan and assessment as listed below. 06/25/24 patient was seen by nurse practitioner physician during rounding in room 321. Patient is toxicology came back positive for THC. Head CT negative. As per surgeon apply Xeroform over lacerated for help with the daily wound care management. patient was cleared by the surgical point to be discharged home. We will give patient one more day four CK of 1645 today if the we will go down less than 800 tomorrow patient will be able to go home. Patient also was complaining of anxiety. Xanax 0.25 q.8 hours was ordered. We will continue to monitor patient in the meantime. A.m. labs 06/26/24 patient was seen by nurse practitioner physician during rounding in room 321. Patient is medically stable to be discharged home once CK is less than 800. Nurse practitioner spoke with RN regarding the plan. Patient in the morning refused the labs as per RN. Nurse practitioner was able to convince patient to take the labs, possibly he will be discharged back home. Patient also ask if we could give him a left back home. RN we will call power house control room operator to find out about above-stated concern. We recommend that patient follow ups with PCP in 2 to 3 days. Patient will be discharged on Augmentin 875 mg b.i.d. for seven days] REVIEW OF SYSTEMS 12-point ROS reviewed with the patient. All pertinent positives mentioned above. Otherwise negative, noncontributory, non-pertinent. PHYSICAL EXAM GENERAL APPEARANCE: The patient is awake, alert, and oriented, in no acute cardiopulmonary distress. NEUROLOGICAL: Cranial nerves II-XII grossly intact. Motor is 5/5 in bilateral upper and lower extremities proximal to distal. No sensory deficits. HEENT: Face is symmetric. Pupils are equal and reactive. Extraocular movements are intact. NECK: Supple. No JVD. No thyromegaly. No submental, submandibular, pre- /postauricular, occipital or supraclavicular lymphadenopathy. CHEST: Normal chest expansion. No Telemetry. LUNGS: Absence of any rales, rhonchi or any wheezing. CARDIOVASCULAR: Regular. S1 and S2 normal. No appreciable rubs, murmurs or gallops. ABDOMEN: Soft, nontender, and nondistended. There is no rebound, voluntary guarding, or rigidity. : Penile sores. No Rubi. EXTREMITIES: Non-edematous and not cyanotic. No clubbing. Good capillary refill. SKIN: Left forehead wound is covered with clean dressing. Vital Signs (last 8hr) Date Time Temp Pulse Resp B/P (MAP) Pulse Ox O2 Delivery O2 Flow Rate FiO2 06/26/24 08:00 97.9 70 18 120/73 98 Room Air 21 06/26/24 03:55 99.0 76 18 141/73 94 Room Air LABS: Laboratory: Test 06/25/24 18:05 06/25/24 06:50 06/24/24 22:40 Range/Units Total Creatine Kinase 1169 #*H 21-232 U/L White Blood Count 5.3 # 4.8-10.8 K/uL Red Blood Count 3.78 L 4.50-6.20 MIL/uL Hemoglobin 11.6 L 14.0-18.0 g/dL Hematocrit 34.5 L 42-54 % Mean Corpuscular Volume 91.3 79-99 fL Mean Corpuscular Hemoglobin 30.7 27.0-33.0 pg Mean Corpuscular Hemoglobin Concent 33.6 32.0-36.0 g/dL Red Cell Distribution Width 12.6 11.0-15.5 % Platelet Count 230 130-400 K/uL Mean Platelet Volume 9.3 7.5-10.5 fL Nucleated Red Blood Cells 0.0 0.0-0.19 % Sodium Level 140 136-145 mmol/L Potassium Level 4.0 3.5-5.1 mmol/L Chloride Level 106 101-111 mmol/L Carbon Dioxide Level 30 21-32 mmol/L Blood Urea Nitrogen 7 7-18 mg/dL Creatinine 0.7 0.5-1.3 mg/dL Glomerular Filtration Rate Calc 129 >90 mL/min Random Glucose 119 H 70-105 mg/dL Total Calcium 8.1 L 8.5-10.1 mg/dL Total Bilirubin 0.4 # 0.2-1.0 mg/dL Aspartate Amino Transf (AST/SGOT) 83 H 10-37 U/L Alanine Aminotransferase (ALT/SGPT) 65 12-78 U/L Alkaline Phosphatase 73 50-136 U/L Total Protein 5.6 #L 6.0-8.3 g/dL Albumin 3.1 L 3.5-5.0 g/dL Magnesium Level 1.90 1.80-2.40 mg/dL Troponin I High Sensitivity 7.7 4-75 ng/L B-Type Natriuretic Peptide 34 0-100 pg/mL Current Medications Medications (Trade) Dose Ordered Sig/Nell Route PRN Reason Start Time Stop Time Status Last Admin Dose Admin Acetaminophen (TYLenol 325MG TAB) 650 mg Q4H PRN PO TEMPERATURE GREATER THAN 101.5 06/24/24 07:30 06/24/24 07:14 DC Acetaminophen (TYLenol 325MG TAB) 650 mg Q4H PRN PO TEMPERATURE GREATER THAN 101.5 06/24/24 07:30 07/24/24 07:29 Acetaminophen (TYLenol 325MG TAB) 650 mg Q6H PRN PO MILD PAIN (1-3) 06/24/24 07:30 06/24/24 07:14 DC Acetaminophen (TYLenol 325MG TAB) 650 mg Q6H PRN PO MILD PAIN (1-3) 06/24/24 07:30 07/24/24 07:29 06/26/24 03:18 650 MG Alprazolam (XANax 0.25MG) 0.25 mg TID PRN PO ANXIETY/AGITATION 06/25/24 11:00 07/25/24 10:59 06/25/24 20:28 0.25 MG Cefazolin Sodium (ANCEF 1 gm vial) 1 gm Q8H IVPB 06/24/24 07:30 06/24/24 07:14 DC Cefazolin Sodium (ANCEF 1 gm vial) 1 gm Q8H IVPB 06/24/24 13:00 07/04/24 12:59 06/26/24 03:12 1 GM Lactated Ringer's 1,000 ml @ 125 mls/hr Q8H IV 06/24/24 07:30 06/24/24 07:14 DC Lactated Ringer's 1,000 ml @ 250 mls/hr Q4H IV 06/24/24 07:30 07/24/24 07:29 06/26/24 06:08 250 MLS/HR Magnesium Sulfate 50 ml @ 0 mls/hr PROTOCOL PRN IV MAGNESIUM PROTOCOL 06/24/24 16:00 07/24/24 15:59 06/25/24 05:17 25 MLS/HR Ondansetron HCl (zoFRAN 4MG INJ) 4 mg Q6H PRN IVP NAUSEA/VOMITING 06/24/24 07:30 06/24/24 07:14 DC Ondansetron HCl (zoFRAN 4MG INJ) 4 mg Q6H PRN IVP NAUSEA/VOMITING 06/24/24 07:30 07/24/24 07:29 Potassium Chloride 100 ml @ 50 mls/hr AD PRN IV POTASSIUM PROTOCOL 06/24/24 07:30 06/24/24 07:14 DC Potassium Chloride 100 ml @ 50 mls/hr AD PRN IV POTASSIUM PROTOCOL 06/24/24 07:30 06/24/24 07:19 DC Potassium Chloride 100 ml @ 100 mls/hr AD PRN IV POTASSIUM PROTOCOL 06/24/24 07:30 06/24/24 07:14 DC Potassium Chloride 100 ml @ 100 mls/hr AD PRN IV POTASSIUM PROTOCOL 06/24/24 07:30 07/24/24 07:29 Potassium Chloride (K-Dur/Klor-Con 20meq) 20 meq AD PRN PO POTASSIUM PROTOCOL 06/24/24 07:30 06/24/24 07:14 DC Potassium Chloride (K-Dur/Klor-Con 20meq) 20 meq AD PRN PO POTASSIUM PROTOCOL 06/24/24 07:30 07/24/24 07:29 06/24/24 22:46 20 MEQ Potassium Chloride (KCl 10% Elixir 20meq/15ml) 20 meq AD PRN PO POTASSIUM PROTOCOL 06/24/24 07:30 06/24/24 07:14 DC Potassium Chloride (KCl 10% Elixir 20meq/15ml) 20 meq AD PRN PO POTASSIUM PROTOCOL 06/24/24 07:30 07/24/24 07:29 Valacyclovir HCl (ValtREX) 500 mg BID PO 06/25/24 09:00 07/25/24 08:59 06/25/24 20:03 500 MG DIAGNOSTICS / RADIOLOGY: [ ] ASSESSMENT: Left scapular laceration/open wounds, POA s/p syncope episode after fall injury Rhabdomyolysis, POA Severe hypokalemia, POA Dehydration POA Marijuana abuse Anemia chronic disease Transaminitis Chronic problem list: Depression, psych history, marijuana abuse, recurrent herpes outbreak with frequent use of acyclovir ATTESTATION BY PHYSICIAN I have seen and examined the patient. I reviewed the documentation, medical decision making, and treatment plan as noted by the mid-level provider above. I agree with the findings and plan of care. KANDACE PEGUERO MD, KATARZYNA B SENIOR BENEFITS ANALYST June 26, 2024 08:25
[2024-06-26] MEDS ORDERED: AMOX1TAB16 PO (08:26)
[2024-06-26 09:44] VITALS: O2SAT 98
--- NOTE | 2024-06-26 11:37 | DS ---
Discharge Summary HOSPITAL COURSE SUMMARY: [ This is a 28-year-old male status post fall with laceration to left forehead Interval history: This 28-year-old male seen in his room resting. Patient initially presented to the hospital with status post fall four days prior were laceration to left forehead noted. Patient unsure of how long he had loss of consciousness. After several days presented to hospital for further evaluation. On admission no surgical intervention needed. So we wound care at this time. Patient's CK trending down. Labs today unable to be obtained due to patient's refusal The patient this point in time ready for discharge Physical exam General: Awake alert and oriented Heart: Regular rate and rhythm} Lungs: Clear to auscultation no distress Abdomen: [Soft, nontender, nondistended Left forehead wound clean Assessment : This is a 28-year-old male status post fall with laceration to left forehead Plan: From trauma standpoint patient will still need to be instructed on appropriate wound care Patient will be scheduled for follow up with our clinic for continued wound management weekly Recommendations will be for patient to be prescribed p.o. antibiotics by hospitalist team Patient's stressed the importance of compliance for wound care and antibiotic management Patient is cleared for discharge today] DRUM PRINTER(S): [Hospitalist] PROCEDURES: [None] PROBLEM(S): [Left forehead laceration] DISCHARGE INSTRUCTIONS: [ Patient will be discharged with p.o. antibiotics Instruction appropriate wound care to be taught to patient Follow up with Dr. Serna's office for continued wound management] Home Meds Reported Medications Valacyclovir HCl (Valacyclovir) 500 Mg Tablet, 500 MG PO BID, TAB 06/25/24 Discontinued Scripts Metronidazole (Flagyl) 375 Mg Capsule, 375 MG PO DAILY for 7 Days, #7 CAP Prov:PHILOMENA HORTON MD 07/22/23 Pantoprazole Sodium (Protonix) 40 Mg Ectab, 40 MG PO DAILY for 30 Days, #30 TAB.EC Prov:PHILOMENA HORTON MD 07/22/23 Time spent arranging discharge: 1-30 minutes EDILSON FAIRCHILD Jr. June 26, 2024 11:37
[2024-06-26 12:00] VITALS: BP 145/90; PULSE 89; RESP 18; TEMP 98.9
--- NOTE | 2024-06-26 14:55 | NUR ---
Discharge instructions given and explained to the patient. Wound care instructions were gone over with the patient and he had an opportunity for a return demonstration. This abstract writer made an anointment with Dr Serna at [facility] for this patient for July 08 at 09:30 AM. The PIV is discontinued. All belongings are packed by the patient. HE is then wheeled to ER waiting so that he can be picked up by a Ly[employer] and driven to his final destination.
--- NOTE | 2024-06-28 17:24 | NUR ---
Transitional Phone Call Attempted to call twice, unable to leave message, no voicemail box.
== END 2024-06-26 15:05 | disposition home or self-care (01) | DRG 605 ==
LOC: EDH 03:15 → EDHIP 03:16 → 3DH 13:55
PROVIDERS: ADMIT Surgery; ATTEND Surgery
DX: S01.01XA Laceration without foreign body of scalp, initial encounter (principal); M62.82 Rhabdomyolysis; D63.8 Anemia in other chronic diseases classified elsewhere; E86.0 Dehydration; E87.6 Hypokalemia; Z53.29 Procedure and treatment not carried out because of patient's decision for other reasons; F41.9 Anxiety disorder, unspecified; F12.10 Cannabis abuse, uncomplicated; F32.A Depression, unspecified; W18.2XXA Fall in (into) shower or empty bathtub, initial encounter; Y93.E1 Activity, personal bathing and showering; Y92.89 Other specified places as the place of occurrence of the external cause; Y99.8 Other external cause status
CPT/HCPCS: 36415; 70450; 80048; 80053; 80305; 82550; 83735; 83880; 84484; 85027; 99285; A6248; G0378; J0690; J1885; J3475; J3480; J7120

== ENCOUNTER 2024-08-29 14:08 | Emergency (ER) | payer SELFPAY ==
[~2024-08-29] VITALS: Ht 172.7 cm; Wt 68.0 kg
[~2024-08-29 14:08] MED LIST changes: +AMOX1TAB16 PO; -METR375C2 PO; -PANT40TA55 PO; +VALA500T42 PO
[2024-08-29 14:35] LABS: IMMATURE GRANULOCYTE ABSOLUTE 0.01 K/uL (0-1); NUCLEATED RED BLOOD CELLS 0.0 % (0.0-0.19); PLATELET COUNT (AUTO) 296 K/uL (130-400); RED BLOOD CELL COUNT(AUTO) 4.83 MIL/uL (4.50-6.20); RED CELL DISTRIBUTION WIDTH 12.4 % (11.0-15.5); WHITE BLOOD COUNT (AUTO) 5.3 K/uL (4.8-10.8)
[2024-08-29 14:46] LABS: CREATININE 0.5 mg/dL (0.5-1.3); GLOMERULAR FILTR. RATE CALC 142 mL/min (>90); GLUCOSE,RANDOM 151 mg/dL (70-105); SODIUM SERUM 143 mmol/L (136-145); UREA NITROGEN, BLOOD 14 mg/dL (7-18)
[2024-08-29 14:57] LABS: ALCOHOL, BLOOD < 3 mg/dL (0-10)
--- NOTE | 2024-08-29 15:10 | NUR ---
SPOKE TO [facility] HOTLINE WORKER IN REGARDS TO PT, SHE WILL NOTIFY MACHINE FEEDER RAW STOCKSQUEEGEE TENDER TO COME SCREEN PT.
--- NOTE | 2024-08-29 15:10 | ERN ---
ED Note History of Present Illness Stated Complaint: SUICIDAL IDEATIONS Chief Complaint: Suicidal Ideation Time Seen by MD: 14:10 Time Seen by Midlevel: 14:12 Dictation: 28-year-old male coming in for suicidal ideation. [facility] left AMA with a presented to the ER for the SI. Allergies: Coded Allergies: No Known Allergies (Unverified Allergy, Unknown, 04/12/22) Home Meds Active Scripts Amoxicillin/Potassium Clav (Amox Tr-K Clv 875-125 mg Tab) 875 Mg-125 Mg Tablet, 1 TAB PO BID for 7 Days, #14 TAB 0 Refills Prov:LAUREEN GREEN BLASTING CONTRACT MAN 06/26/24 Reported Medications Valacyclovir HCl (Valacyclovir) 500 Mg Tablet, 500 MG PO BID, TAB 06/25/24 Past Medical History Past Medical History: Anxiety, Depression Additional Past Medical Hx: PSYCH HISTORY Surgical History: None Social History: Drugs Review of System Dictation Constitutional: Negative for fever,chills, and weight loss Eyes: Negative for injury, pain,redness, and discharge ENT: Negative for injury,pain or swelling Cardiovascular: Negative for chest pain, palpitations, and edema Respiratory: Negative for shortness of breath, cough, and wheezing, Abdomen/GI: Negative for abdominal pain, nausea, vomiting, diarrhea, and constipation Back: Negative for injury and pain : Negative for injury, bleeding and discharge MS/Extremity: Negative for injury and deformity Skin: Negative for rash, and discoloration Neuro: Negative for headache, weakness, numbness, tingling, and seizure Psych: Positive for suicidal ideation Review of Systems: was completed Initial Vital Sign VS Vital Signs Date Time Temp Pulse Resp B/P (MAP) Pulse Ox O2 Delivery O2 Flow Rate FiO2 08/29/24 14:22 98.2 86 16 132/83 99 Room Air 0 Physical Exam Dictation General: awake, alert, NAD Head/Face: Normocephalic, atraumatic Eyes: PERRL, EOMI, vision at baseline ENT: oral cavity clear, TMs clear, no signs of infection Neck: Trachea midline, supple, no nuchal rigidity Cardiovascular: RRR, normal S1/S2, No MRGs, no JVD Respiratory: CTAB, no respiratory distress, No rales or wheezes Abdomen: Soft, non-tender, non-distended, normal bowel sounds, no guarding or rebound. Skin: Warm, dry, normal turgor, no rash MS/Extremity: Pulses equal, no cyanosis, neurovascular intact, FROM Neuro: COAx4, GCS 15, strength 5/5, CN 2-12 intact, normal cerebellar exam, normal gait, Psych: Normal behavior, mood, and affect normal Results (Laboratory/Radiology) Laboratory/Radiology Laboratory Tests Test 08/29/24 14:23 White Blood Count 5.3 K/uL (4.8-10.8) Red Blood Count 4.83 MIL/uL (4.50-6.20) Hemoglobin 14.7 g/dL (14.0-18.0) Hematocrit 42.5 % (42-54) Mean Corpuscular Volume 88.0 fL (79-99) Mean Corpuscular Hemoglobin 30.4 pg (27.0-33.0) Mean Corpuscular Hemoglobin Concent 34.6 g/dL (32.0-36.0) Red Cell Distribution Width 12.4 % (11.0-15.5) Platelet Count 296 K/uL (130-400) Mean Platelet Volume 9.9 fL (7.5-10.5) Immature Granulocyte % (Auto) 0.2 % (0-1) Neutrophils (%) (Auto) 69.2 % (40.0-77.0) Lymphocytes (%) (Auto) 15.5 % (21.0-51.0) L Monocytes (%) (Auto) 13.5 % (3.0-13.0) H Eosinophils (%) (Auto) 0.7 % (0.0-8.0) Basophils (%) (Auto) 0.9 % (0.0-5.0) Neutrophils # (Auto) 3.7 K/uL (1.8-7.7) Lymphocytes # (Auto) 0.8 K/uL (1.0-4.8) L Monocytes # (Auto) 0.7 K/uL (0.1-1.0) Eosinophils # (Auto) 0.04 K/uL (0.00-0.70) Basophils # (Auto) 0.05 K/uL (0.00-0.20) Absolute Immature Granulocyte (auto 0.01 K/uL (0-1) Nucleated Red Blood Cells 0.0 % (0.0-0.19) Sodium Level 143 mmol/L (136-145) Potassium Level 3.7 mmol/L (3.5-5.1) Chloride Level 105 mmol/L (101-111) Carbon Dioxide Level 29 mmol/L (21-32) Blood Urea Nitrogen 14 mg/dL (7-18) Creatinine 0.5 mg/dL (0.5-1.3) Glomerular Filtration Rate Calc 142 mL/min (>90) Random Glucose 151 mg/dL (70-105) H Total Calcium 9.1 mg/dL (8.5-10.1) Salicylates Level < 2.8 mg/dL (2.8-20.0) L Acetaminophen Level < 1 mcg/mL (10-29) L Serum Alcohol < 3 mg/dL (0-10) Labs Reviewed?: Yes ED Course ED Course Orders Procedure Category Date Status Time Cbc With Differential LAB 08/29/24 Complete 14:13 Basic Metabolic Panel LAB 08/29/24 Complete 14:13 Urinalysis Profile LAB 08/29/24 Logged 14:13 Drug Screen Urine LAB 08/29/24 Logged 14:13 Alcohol, Blood LAB 08/29/24 Complete 14:13 Salicylate LAB 08/29/24 Complete 14:13 Acetaminophen LAB 08/29/24 Complete 14:13 Vital Signs Date Time Temp Pulse Resp B/P (MAP) Pulse Ox O2 Delivery O2 Flow Rate FiO2 08/29/24 14:22 98.2 86 16 132/83 99 Room Air 0 Medical Decision Making MDM MDM: 28-year-old male coming in for suicidal ideation. [facility], left AMA with a presented to the ER for the SI. Blood work is unremarkable. Screener came in his screen patient. However patient did not meet criteria. Patient needs to follow up outpatient with the his facility technician and we will sulfa admit to [facility] after being discharge. Differential diagnosis: Electrolyte abnormality, suicidal, homicidal Rationale: Tests considered and ordered secondary to shared decision making include: Previous outside records reviewed: Old ER visits. Risk of complication and/or morbidity or mortality of patient management: None Medications-Per medication reconciliation Need for hospitalization: Patient does not meet criteria for hospitalization. Need for emergency major/minor surgery: No There are no social concerns with this patient. Prescription drug management Prescriptions will include symptomatic care Patient's prior external medical records from other ER visits were reviewed by me as indicated. Prior testing and results from previous visits were reviewed. Prior tests were taken into account with medical decision making and resource utilization, independent historian/historians were used to obtain complete medical history. I independently interpreted the test that were performed, results were reviewed by me and considered findings on radiology if ordered. Medical management and examination interpretation discussions were had by me with other qualified healthcare professionals as indicated for the patient's care. DX & DISP Disposition: Discharge Departure Impression: Primary Impression: Suicidal ideations Condition: Stable Additional Instructions: Keep your appointment with the case management. Referrals: SELF,REFERRAL (PCP) Time of Disposition: 16:27 I have reviewed the case, and I agree with, Diagnosis and Plan LACIE MATTHEWS NP Aug 29, 2024 15:09
--- NOTE | 2024-08-29 16:18 | NUR ---
PUNEET WITH MAGAN AT BEDSIDE WITH PT.
[2024-08-29 16:29] VITALS: BP 133/80; PULSE 82; RESP 18; TEMP 98.2; O2SAT 98
== END 2024-08-29 16:40 | disposition home or self-care (01) ==
LOC: EDH 14:08
DX: R45.851 Suicidal ideations (principal); F41.9 Anxiety disorder, unspecified; F32.A Depression, unspecified; Z79.624 Long term (current) use of inhibitors of nucleotide synthesis
CPT/HCPCS: 99285; 80048; 85025; 36415; G0481; 99283

== ENCOUNTER 2024-09-17 17:40 | Emergency (ER) | payer SELFPAY ==
[~2024-09-17] VITALS: Ht 172.7 cm; Wt 79.4 kg
--- NOTE | 2024-09-17 18:18 | ERN ---
ED Note History of Present Illness Stated Complaint: SI Chief Complaint: Suicidal Ideation Time Seen by MD: 17:50 Time Seen by Midlevel: 17:50 Dictation: The patient is a 28-year-old male with of depression who presents to the emergency department with complaints of suicidal ideations. Patient reports suicidal ideations has been going on for decades. Patient plans to hang him self. Denies any homicidal ideations. Allergies: Coded Allergies: No Known Allergies (Unverified Allergy, Unknown, 04/12/22) Home Meds Active Scripts Amoxicillin/Potassium Clav (Amox Tr-K Clv 875-125 mg Tab) 875 Mg-125 Mg Tablet, 1 TAB PO BID for 7 Days, #14 TAB 0 Refills Prov:PETERLAUREEN B MANAGER RISK 06/26/24 Reported Medications Valacyclovir HCl (Valacyclovir) 500 Mg Tablet, 500 MG PO BID, TAB 06/25/24 Past Medical History Past Medical History: Anxiety, Depression Additional Past Medical Hx: PSYCH HISTORY Surgical History: None Social History: Drugs RN Note Reviewed/Agreed w/PFSH: Yes Review of System Dictation Constitutional: Negative for fever,chills, and weight loss Eyes: Negative for injury, pain,redness, and discharge ENT: Negative for injury,pain or swelling Cardiovascular: Negative for chest pain, palpitations, and edema Respiratory: Negative for shortness of breath, cough, and wheezing, Abdomen/GI: Negative for abdominal pain, nausea, vomiting, diarrhea, and constipation Back: Negative for injury and pain : Negative for injury, bleeding and discharge MS/Extremity: Negative for injury and deformity Skin: Negative for rash, and discoloration Neuro: Negative for headache, weakness, numbness, tingling, and seizure Psych: Negative for homicidal ideation, and hallucinations positive for suicidal ideations Initial Vital Sign VS Vital Signs Date Time Temp Pulse Resp B/P (MAP) Pulse Ox O2 Delivery O2 Flow Rate FiO2 09/17/24 17:47 98.4 97 18 153/85 98 09/17/24 18:57 Room Air* 0 21 Physical Exam Dictation Vital Signs reviewed General Appearance: Alert, oriented x 3, no acute distress, well developed, nourished. Head and Face: non-traumatic. Eyes: PERRL, pink conjunctivas, eyelid no trauma, anterior chamber with arcus senilis. Ears: Pinnas intact and no signs of trauma or erythema ear canals clear and no discharge TM no erythema Nose: No discharge, no bleeding. Oropharynx: Mouth normal, tongue pink. pharynx clear,no erythema, tonsils no exudates, no abscesses noted, mucous membrane moist Neck: Supple, non-tender, no thyromegaly, no masses, no JVD, no bruits Breast:Deferred Chest:No tenderness, no crepitus, no paradoxical movement, no retractions Lungs:Clear, well-ventilated, symmetric, no rales, no wheezing, no rhonchi, no stridor, good breath sounds bilaterally Heart: Regular rate, regular rhythm, no murmur, no gallops Vascular: no peripheral edema, Abdomen: Soft, positive bowel sounds, nondistended, no guarding, nontender, no rebound, no masses no hepatomegaly, no splenomegaly, no Alcaraz's sign, no hernias. Rectal: Deferred Genital: Deferred Neurological: Normal speech, motor function intact, sensory function intact Musculoskeletal: Neck nontender, full range of motion, back nontender, full range of motion, Extremities: nontender, full range of motion Skin: Color pink, dry, no turgor, no rash, no lacerations, no abrasions, no contusions. Lymphatic: Deferred Results (Laboratory/Radiology) Laboratory/Radiology Laboratory Tests Test 09/17/24 18:14 White Blood Count 5.6 K/uL (4.8-10.8) Red Blood Count 4.66 MIL/uL (4.50-6.20) Hemoglobin 14.4 g/dL (14.0-18.0) Hematocrit 43.4 % (42-54) Mean Corpuscular Volume 93.1 fL (79-99) Mean Corpuscular Hemoglobin 30.9 pg (27.0-33.0) Mean Corpuscular Hemoglobin Concent 33.2 g/dL (32.0-36.0) Red Cell Distribution Width 13.7 % (11.0-15.5) Platelet Count 302 K/uL (130-400) Mean Platelet Volume 9.6 fL (7.5-10.5) Immature Granulocyte % (Auto) 0.7 % (0-1) Neutrophils (%) (Auto) 58.8 % (40.0-77.0) Lymphocytes (%) (Auto) 21.8 % (21.0-51.0) Monocytes (%) (Auto) 14.2 % (3.0-13.0) H Eosinophils (%) (Auto) 3.1 % (0.0-8.0) Basophils (%) (Auto) 1.4 % (0.0-5.0) Neutrophils # (Auto) 3.3 K/uL (1.8-7.7) Lymphocytes # (Auto) 1.2 K/uL (1.0-4.8) Monocytes # (Auto) 0.8 K/uL (0.1-1.0) Eosinophils # (Auto) 0.17 K/uL (0.00-0.70) Basophils # (Auto) 0.08 K/uL (0.00-0.20) Absolute Immature Granulocyte (auto 0.04 K/uL (0-1) Nucleated Red Blood Cells 0.0 % (0.0-0.19) Sodium Level 140 mmol/L (136-145) Potassium Level 3.8 mmol/L (3.5-5.1) Chloride Level 101 mmol/L (101-111) Carbon Dioxide Level 32 mmol/L (21-32) Blood Urea Nitrogen 19 mg/dL (7-18) H Creatinine 0.5 mg/dL (0.5-1.3) Glomerular Filtration Rate Calc 142 mL/min (>90) Random Glucose 88 mg/dL (70-105) Total Calcium 9.3 mg/dL (8.5-10.1) Salicylates Level < 2.8 mg/dL (2.8-20.0) L Acetaminophen Level < 1 mcg/mL (10-29) L Serum Alcohol < 3 mg/dL (0-10) Labs Reviewed?: Yes ED Course ED Course Orders Procedure Category Date Status Time Cbc With Differential LAB 09/17/24 Complete 18:00 Alcohol, Blood LAB 09/17/24 Complete 18:00 Salicylate LAB 09/17/24 Complete 18:00 Acetaminophen LAB 09/17/24 Complete 18:00 Urinalysis Profile LAB 09/17/24 Logged 18:00 Basic Metabolic Panel LAB 09/17/24 Complete 18:00 Drug Screen Urine LAB 09/17/24 Logged 18:00 Suicide Precautions CPOE 09/17/24 Transmitted 18:00 Vital Signs Date Time Temp Pulse Resp B/P (MAP) Pulse Ox O2 Delivery O2 Flow Rate FiO2 09/17/24 18:57 98.4 97 18 153/85 98 Room Air* 0 21 09/17/24 17:47 98.4 97 18 153/85 98 Medical Decision Making [facility] The patient is a 28-year-old male with of depression who presents to the emergency department with complaints of suicidal ideations. Patient reports suicidal ideations has been going on for decades. Patient plans to hang himself. Denies any homicidal ideations. CBC showed no leukocytosis, no anemia, chemistry showed no electrolyte imbalanc e, normal renal function, negative alcohol level. On physical exam patient is in no acute distress, calm and cooperative. Patient with no recent attempts to hurt himself. Symptoms has been going on for years according to patient. Tropical screener informed that patient does not meet criteria for hospitalization at [facility]. Patient will be follow up as outpatient. Differential diagnosis: Suicidal ideations, electrolyte imbalance, dehydration Need for hospitalization: Patient does not meet criteria for hospitalization. There are no social concerns with this patient. DX & DISP Disposition: Discharge Departure Impression: Primary Impression: Suicidal ideations Condition: Stable Additional Instructions: Please follow up with your appointments at the [facility]. Please return to ER if anything worsens. FOLLOW-UP WITH PRIMARY CARE PROVIDER IN 1 TO 2 DAYS. TAKE MEDICATIONS DIRECTED HERE IN THE EMERGENCY ROOM. OKAY TO CONTINUE HOME MEDICATIONS UNLESS OTHERWISE DISCUSSED DURING YOUR VISIT IN THE EMERGENCY ROOM TODAY. RETURN TO YOUR NEAREST EMERGENCY ROOM IF SYMPTOMS WORSEN OR IF THERE IS NO IMPROVEMENT. CALL 911 IF YOU NEED IMMEDIATE ASSISTANCE. TAKE TYLENOL [id number] NEEDED AND IF NO CONTRAINDICATIONS ARE PRESENT. INCREASE ORAL HYDRATION. A WOUND CULTURE OR URINE CULTURE WAS ORDERED HERE IN THE EMERGENCY ROOM DEPARTMENT PLEASE FOLLOW-UP WITH PRIMARY CARE PROVIDER AND ADVISE THEM TO GET REPEAT PORTS FROM OUR FACILITY. IF YOU HAD ANY MARCIA WRAP/SPLINTS THAT WERE APPLIED HERE, PLEASE DO NOT REMOVE THEM UNTIL YOU SEE YOUR PRIMARY CARE OR SPECIALTY. Referrals: SELF,REFERRAL (PCP) Time of Disposition: 20:58 I have reviewed the case, and I agree with, Diagnosis and Plan VINI HAWKINS [facility] Sep 17, 2024 18:18
[2024-09-17 18:46] LABS: IMMATURE GRANULOCYTE ABSOLUTE 0.04 K/uL (0-1); NUCLEATED RED BLOOD CELLS 0.0 % (0.0-0.19); PLATELET COUNT (AUTO) 302 K/uL (130-400); RED BLOOD CELL COUNT(AUTO) 4.66 MIL/uL (4.50-6.20); RED CELL DISTRIBUTION WIDTH 13.7 % (11.0-15.5); WHITE BLOOD COUNT (AUTO) 5.6 K/uL (4.8-10.8)
[2024-09-17 18:57] VITALS: BP 153/85; PULSE 97; RESP 18; TEMP 98.4; O2SAT 98
[2024-09-17 18:59] LABS: CREATININE 0.5 mg/dL (0.5-1.3); GLOMERULAR FILTR. RATE CALC 142 mL/min (>90); GLUCOSE,RANDOM 88 mg/dL (70-105); SODIUM SERUM 140 mmol/L (136-145); UREA NITROGEN, BLOOD 19 mg/dL (7-18)
[2024-09-17 19:04] LABS: ALCOHOL, BLOOD < 3 mg/dL (0-10)
--- NOTE | 2024-09-17 19:17 | NUR ---
CONTACTED [facility] CRISIS LINE FOR PATIENT SCREENING
--- NOTE | 2024-09-17 19:54 | NUR ---
JOAQUIN CAMPBELL AT BEDSIDE TO ASSESS PATIENT
--- NOTE | 2024-09-17 20:49 | NUR ---
[facility] SCREENER Rahul CAMPBELL ADVISES PATIENT DOES NOT MEET INPATIENT TREATMENT CRITERIA AND WILL BE FOLLOWED UP ON AN OUTPATIENT BASIS. Darling HAWKINS MADE AWARE
== END 2024-09-17 21:09 | disposition home or self-care (01) ==
LOC: EDH 17:40
DX: R45.851 Suicidal ideations (principal); F41.9 Anxiety disorder, unspecified; F32.A Depression, unspecified; Z79.624 Long term (current) use of inhibitors of nucleotide synthesis
CPT/HCPCS: 99283; 80048; 85025; 36415; G0481

== ENCOUNTER 2025-01-09 10:16 | Emergency (ER) | payer SELFPAY ==
[~2025-01-09] VITALS: Ht 172.7 cm; Wt 81.6 kg
[~2025-01-09 10:16] MED LIST changes: +CLIN-141 PO
--- NOTE | 2025-01-09 10:50 | NUR ---
SPOKE WITH GERMAN WITH [facility] CONTROL, . PER GERMAN, MONITOR PT, OBTAIN LABS AND REQUEST PSYCH SCREENING. BENZOS CAN BE GIVEN FOR SEIZURES AND SUGAR CONTAINING PO FLUIDS TO HELP METABOLIZE ALCOHOL.
--- NOTE | 2025-01-09 10:54 | NUR ---
URINE SAMPLE JUST NOW SENT UP TO LAB. IT WAS LABELED, TIMED AND INITIALED
--- NOTE | 2025-01-09 11:01 | NUR ---
JUST NOW ASSUMING PT CARE. PT TO BE PLACED IN HALLWAY B1 BY [facility]05 AND ASSIGNED A 1:1 SITTER BRITTANY ROBERTSON ED TECH. REFER TO PAPERWORK
[2025-01-09 11:07] LABS: CREATININE 0.7 mg/dL (0.5-1.3); GLOMERULAR FILTR. RATE CALC 128 mL/min (>90); GLUCOSE,RANDOM 89 mg/dL (70-105); SODIUM SERUM 138 mmol/L (136-145); UREA NITROGEN, BLOOD 15 mg/dL (7-18)
[2025-01-09 11:08] LABS: IMMATURE GRANULOCYTE ABSOLUTE 0.02 K/uL (0-1); NUCLEATED RED BLOOD CELLS 0.0 % (0.0-0.19); PLATELET COUNT (AUTO) 380 K/uL (130-400); RED BLOOD CELL COUNT(AUTO) 5.38 MIL/uL (4.50-6.20); RED CELL DISTRIBUTION WIDTH 12.2 % (11.0-15.5); WHITE BLOOD COUNT (AUTO) 5.2 K/uL (4.8-10.8)
--- NOTE | 2025-01-09 11:12 | ERN ---
ED Note History of Present Illness Stated Complaint: INGESTION Chief Complaint: Suicidal Ideation Time Seen by MD: 10:17 Time Seen by Midlevel: 10:20 Dictation: 29-year-old brought in via EMS for ingestion of hand retail sales associate. Patient was at the [facility] waiting for an appointment when he states he began to feel suicidal grab the hand retail sales associate bottle and put it in his mouth. Patient is complaining of suicidal ideations and burning sensation to his throat. Allergies: Coded Allergies: No Known Allergies (Unverified Allergy, Unknown, 04/12/22) Home Meds Active Scripts Clindamycin HCl (Clindamycin HCl) 300 Mg Capsule, 1 CAP PO TID for 7 Days, #21 CAP 0 Refills Prov:KAYLIN GIBBONS MD 12/29/24 Amoxicillin/Potassium Clav (Amox Tr-K Clv 875-125 mg Tab) 875 Mg-125 Mg Tablet, 1 TAB PO BID for 7 Days, #14 TAB 0 Refills Prov:LAUREEN GREEN CALCULATION CLERK 06/26/24 Reported Medications Valacyclovir HCl (Valacyclovir) 500 Mg Tablet, 500 MG PO BID, TAB 06/25/24 Past Medical History Past Medical History: Anxiety, Depression Additional Past Medical Hx: PSYCH HISTORY Surgical History: None Social History: Drugs Review of System Dictation Constitutional: Negative for fever,chills, and weight loss Eyes: Negative for injury, pain,redness, and discharge ENT: Negative for injury,pain or swelling Cardiovascular: Negative for chest pain, palpitations, and edema Respiratory: Negative for shortness of breath, cough, and wheezing, Abdomen/GI: Negative for abdominal pain, nausea, vomiting, diarrhea, and constipation Back: Negative for injury and pain : Negative for injury, bleeding and discharge MS/Extremity: Negative for injury and deformity Skin: Negative for rash, and discoloration Neuro: Negative for headache, weakness, numbness, tingling, and seizure Psych positive for suicide ideation, no homicidal ideation, and no hallucinations Review of Systems: was completed Initial Vital Sign VS Vital Signs Date Time Temp Pulse Resp B/P (MAP) Pulse Ox O2 Delivery O2 Flow Rate FiO2 01/09/25 10:35 98.1 86 18 128/85 97 Room Air 0 Physical Exam Dictation General: awake, alert, NAD Head/Face: Normocephalic, atraumatic Eyes: PERRL, EOMI, vision at baseline ENT: oral cavity clear, TMs clear, no signs of infection Neck: Trachea midline, supple, no nuchal rigidity Cardiovascular: RRR, normal S1/S2, No MRGs, no JVD Respiratory: CTAB, no respiratory distress, No rales or wheezes Abdomen: Soft, non-tender, non-distended, normal bowel sounds, no guarding or rebound. Skin: Warm, dry, normal turgor, no rash MS/Extremity: Pulses equal, no cyanosis, neurovascular intact, FROM Neuro: COAx4, GCS 15, strength 5/5, CN 2-12 intact, normal cerebellar exam, normal gait, Psych: Normal behavior, mood, and affect normal Results (Laboratory/Radiology) Laboratory/Radiology Laboratory Tests Test 01/09/25 10:49 01/09/25 10:57 White Blood Count 5.2 K/uL (4.8-10.8) Red Blood Count 5.38 MIL/uL (4.50-6.20) Hemoglobin 16.4 g/dL (14.0-18.0) Hematocrit 46.9 % (42-54) Mean Corpuscular Volume 87.2 fL (79-99) Mean Corpuscular Hemoglobin 30.5 pg (27.0-33.0) Mean Corpuscular Hemoglobin Concent 35.0 g/dL (32.0-36.0) Red Cell Distribution Width 12.2 % (11.0-15.5) Platelet Count 380 K/uL (130-400) Mean Platelet Volume 9.0 fL (7.5-10.5) Immature Granulocyte % (Auto) 0.4 % (0-1) Neutrophils (%) (Auto) 68.8 % (40.0-77.0) Lymphocytes (%) (Auto) 19.6 % (21.0-51.0) L Monocytes (%) (Auto) 7.9 % (3.0-13.0) Eosinophils (%) (Auto) 2.1 % (0.0-8.0) Basophils (%) (Auto) 1.2 % (0.0-5.0) Neutrophils # (Auto) 3.6 K/uL (1.8-7.7) Lymphocytes # (Auto) 1.0 K/uL (1.0-4.8) Monocytes # (Auto) 0.4 K/uL (0.1-1.0) Eosinophils # (Auto) 0.11 K/uL (0.00-0.70) Basophils # (Auto) 0.06 K/uL (0.00-0.20) Absolute Immature Granulocyte (auto 0.02 K/uL (0-1) Nucleated Red Blood Cells 0.0 % (0.0-0.19) Sodium Level 138 mmol/L (136-145) Potassium Level 4.0 mmol/L (3.5-5.1) Chloride Level 99 mmol/L (101-111) L Carbon Dioxide Level 33 mmol/L (21-32) H Blood Urea Nitrogen 15 mg/dL (7-18) Creatinine 0.7 mg/dL (0.5-1.3) Glomerular Filtration Rate Calc 128 mL/min (>90) Random Glucose 89 mg/dL (70-105) Total Calcium 9.0 mg/dL (8.5-10.1) Salicylates Level < 2.8 mg/dL (2.8-20.0) L Acetaminophen Level < 1 mcg/mL (10-29) L Serum Alcohol < 3 mg/dL (0-10) Urine Opiates Screen NEGATIVE (NEGATIVE) Urine Barbiturates Screen NEGATIVE (NEGATIVE) Urine Phencyclidine Screen NEGATIVE (NEGATIVE) Urine Amphetamines Screen NEGATIVE (NEGATIVE) Urine Benzodiazepines Screen NEGATIVE (NEGATIVE) Urine Cocaine Screen NEGATIVE (NEGATIVE) Urine Marijuana (THC) Screen POSITIVE (NEGATIVE) H Labs Reviewed?: Yes ED Course ED Course Orders Procedure Category Date Status Time Cbc With Differential LAB 01/09/25 Complete 10:39 Basic Metabolic Panel LAB 01/09/25 Complete 10:39 Acetaminophen LAB 01/09/25 Complete 10:39 Salicylate LAB 01/09/25 Complete 10:39 Alcohol, Blood LAB 01/09/25 Complete 10:39 Drug Screen Urine LAB 01/09/25 Complete 10:39 Hydroxyzine 50mg Vial PHA 01/09/25 Complete (Atarax 50mg Inj) 15:00 Current Medications Medications (Trade) Dose Ordered Sig/Nell Route PRN Reason Start Time Stop Time Status Last Admin Dose Admin Hydroxyzine HCl (ATArax 50MG INJ) 25 mg ONCE ONCE IM 01/09/25 15:00 01/09/25 15:01 DC 01/09/25 14:47 Vital Signs Date Time Temp Pulse Resp B/P (MAP) Pulse Ox O2 Delivery O2 Flow Rate FiO2 01/09/25 10:35 98.1 86 18 128/85 97 Room Air 0 Medical Decision Making MDM MDM: 29-year-old brought in via EMS for ingestion of hand retail sales associate. Patient was at the [facility] waiting for an appointment when he states he began to feel suicidal grab the hand retail sales associate bottle and put it in his mouth. Patient is complaining of suicidal ideations and burning sensation to his throat.CBC shows no leukocytosis, no anemia, no thrombocytopenia. Chemistry unremarkable. Toxicology shows negative salicylates, negative Tylenol, positive for THC, negative alcohol. Poison control was called, recommended just monitoring. See nursing notes for further Poison control recommendations. Patient was accepted to [facility] by Dr. Cohen for suicidal ideation. Differential diagnosis: Suicidal ideation, homicidal ideation, Rationale: Tests considered and ordered secondary to shared decision making include: labs, ECG and radiology Previous outside records reviewed: Old ER visits. Risk of complication and/or morbidity or mortality of patient management: None Medications-Per medication reconciliation Need for hospitalization: Patient does meet criteria for hospitalization. Need for emergency major/minor surgery: No There are no social concerns with this patient. Prescription drug management Prescriptions will include symptomatic care Patient's prior external medical records from other ER visits were reviewed by me as indicated. Prior testing and results from previous visits were reviewed. Prior tests were taken into account with medical decision making and resource utilization, independent historian/historians were used to obtain complete me dical history. I independently interpreted the test that were performed, results were reviewed by me and considered findings on radiology if ordered. Medical management and examination interpretation discussions were had by me with other qualified healthcare professionals as indicated for the patient's care. DX & DISP Disposition: Transfer Decision to Admit Date: Jan 09, 2025 Decision to Admit Time: 17:03 Departure Impression: Primary Impression: Suicidal ideations Condition: Stable Referrals: SELF,REFERRAL (PCP) LACIE MATTHEWS CNP Jan 09, 2025 11:12
--- NOTE | 2025-01-09 11:12 | NUR ---
PT OFFERED AND ACCEPTED A WARM BLANKET.
[2025-01-09 11:14] LABS: ALCOHOL, BLOOD < 3 mg/dL (0-10)
[2025-01-09 11:17] LABS: AMPHET/METH SCREEN,URINE NEGATIVE (NEGATIVE); BARBITURATE SCREEN, URINE NEGATIVE (NEGATIVE); CANNABINOID SCREEN,URINE POSITIVE (NEGATIVE); COCAINE SCREEN,URINE NEGATIVE (NEGATIVE)
--- NOTE | 2025-01-09 11:24 | NUR ---
PT BELONGINGS THAT WERE IN TWO LARGE PLASTIC BAGS WERE REMOVED/LABELED BY SECURITY. FORM SIGNED AND IN CHART.
--- NOTE | 2025-01-09 11:26 | NUR ---
PT VERBALIZED HAVING THOUGHTS OF BANGING HIS HEAD ON THE COUNTER TOP THAT HE IS NEXT TO IN HALLWAY B. I DID INFORM THE 1:1 TECH AND THE EDGING MACHINE FEEDER LACIE CURRENTLY ASSIGNED TO PT CARE OF HIM VERBALIZING THOSE THOUGHTS AND THE WANTING OF "THE MEDICATION THAT TAKES AWAY MY IMPULSIVE THOUGHTS OF ME WANTING TO HARM MYSELF"
--- NOTE | 2025-01-09 11:39 | NUR ---
PER LACIE BUENO, SHE IS AWAITING PT TO BE SCREENED PRIOR TO ORDERING ANY ANTI ANXIETY MEDICATION TO THE PT. THE PT WAS JUST NOW INFORMED.
--- NOTE | 2025-01-09 11:43 | NUR ---
[facility] [place] SCREENER CALLED. KAYLEIGH DISPATCHER TO CALL SCREENER
--- NOTE | 2025-01-09 11:44 | NUR ---
PT ESCORTED TO BATHROOM BY BRITTANY PATRICK
--- NOTE | 2025-01-09 11:47 | NUR ---
PT JUST NOW RETURNED TO HIS HALLWAY BED B
--- NOTE | 2025-01-09 11:58 | NUR ---
PT OFFERED BUT REFUSED A MEAL TRAY D/T HIS STOMACH FEELING OFF AFTER INGETING THE HAND JUNK DEALER FLEXO PRESS OPERATOR TO ED.
--- NOTE | 2025-01-09 12:18 | NUR ---
PT CURRENTLY SCROLLING ON HIS PHONE. NO APPARENT ACUTE DISTRESS NOTED AT THIS MOMENT. ANIL DOCKERY TECH HAS NOW TAKEN OVER 1:1 OVERWATCH OF PT. REFER TO DOCUMENTATION
--- NOTE | 2025-01-09 12:51 | NUR ---
STILL PENDING TROPICAL SCREENER TO ARRIVE.
--- NOTE | 2025-01-09 12:57 | NUR ---
[place] [facility]OPICAL SCREENER JOSE THE SCREENER SAID THAT SHE WOULD BE MAKING HER WAY OVER HERE SHORTLY TO INITIATE THE PT PSYCHATRIC SCREENING.
--- NOTE | 2025-01-09 13:52 | NUR ---
STILL PENDING THE SCREENER TO ARRIVE AND INITIATE THE SCREENING. PT REMAINS COOPERATIVE AND CALM AT THIS TIME. REFER TO 1:1 SITTER DOCUMENTATION
--- NOTE | 2025-01-09 14:25 | NUR ---
FOLLOW UP CALL MADE TO [facility]. UPON CALLING, THE SCREENER JOSE WALKED IN
--- NOTE | 2025-01-09 14:31 | NUR ---
JOSE THE TROPICAL SCREENER HAS TAKEN PT TO A ROOM TO START HER PSYCHIATRIC ASSESSMENT
--- NOTE | 2025-01-09 14:39 | NUR ---
PER JHONNYER, SHE WILL WORK ON PT PLACEMENT
--- NOTE | 2025-01-09 15:16 | NUR ---
PENDING TO RECIEVE TRANSFER OR ADMIT INFORMATION BY [facility] SCREENER.
--- NOTE | 2025-01-09 15:18 | NUR ---
PT NOW WAS OFFERED AND ACCEPTED A MEAL TRAY AND IS EATING CURRENTLY
--- NOTE | 2025-01-09 16:25 | NUR ---
MAGAN CAMPBELL THE SCREENER HAD TO LEAVE, BUT SHE STATED THEY ARE STILL WORKING ON PT PLACEMENT AND WOULD CALL ME BACK.
--- NOTE | 2025-01-09 16:29 | NUR ---
[facility] SCREENING NAME CORRECTION: SHANNAN WAS THE SCREENER THAT SCREENED THE PT, NOT JOSE.
--- NOTE | 2025-01-09 16:30 | NUR ---
PT WAS ESCORTED TO AND FROM THE RESTROOM BY ANIL PATRICK
--- NOTE | 2025-01-09 16:58 | NUR ---
ACCEPTANCE: [facility] HAS ACCEPTED THE PT. PT HAS BEEN A RESIDENT OF THEIR FACILITY BEFORE. PT ALSO REQUESTING SOMETHING FOR HIS ANXIETY. HE STATED THE PREVIOUS MEDICATION HELPS WITH HIM NOT WANTING TO BASH HIS HEAD IN BUT NOTHING FOR HIS ANXIETY.
--- NOTE | 2025-01-09 17:18 | NUR ---
MAGAN ROWAN CALLED AND INFORMED ME THAT SHE WOULD BE CALLING AND SETTING UP FOR LAW ENFORCEMENT TO COME AND ADMINISTRATIVE OFFICER THE PT AND TRANSPORT TO [facility]. SECURITY HAS BEEN CALLED TO RETURN PTS TWO BAGS OF LINEN TO PREPARE FOR TRANSPORT.
--- NOTE | 2025-01-09 17:24 | NUR ---
LACIE WELFARE DIRECTOR GAVE VERBAL ORDER FOR DIPHENHYDRAMINE FOR PT C/O ANXIETY
[2025-01-09] MEDS: DIPHENHYDRAMINE HCL 50 MG CAPSULE PO ONE (17:32)
--- NOTE | 2025-01-09 17:34 | NUR ---
JUST PENDING TRANSPORTATION TO ARRIVE FOR PT.
--- NOTE | 2025-01-09 17:44 | NUR ---
PT INFORMED UPON HIS INQUIRY OF WHERE HE WILL BE TRANSPORTED TO. HE WAS ALSO OFFERED AND ACCEPTED A SANDWHICH, APPLE SAUCE AND A BOTTLE OF WATER WHILE AWAITS TRANSPORT.
[2025-01-09 18:58] VITALS: BP 132/78; PULSE 84; RESP 17; TEMP 98.1; O2SAT 97
== END 2025-01-09 19:23 ==
LOC: EDH 10:16
DX: R45.851 Suicidal ideations (principal); R07.0 Pain in throat; F41.9 Anxiety disorder, unspecified; F32.A Depression, unspecified; Z79.624 Long term (current) use of inhibitors of nucleotide synthesis
CPT/HCPCS: 99285; 80048; 80305; 85025; 36415; 96372; Q0163; G0481; J3410; 99283